=== PATIENT | male | born 1970 | race Caucasian/White ===

== ENCOUNTER 2018-01-25 02:44 | Emergency (ER) | payer SELFPAY ==
[~2018-01-25] VITALS: Ht 177.8 cm; Wt 72.5 kg
[~2018-01-25 02:44] MED LIST: BACT800T5 PO; CEPH-460 PO; DILA2TAB4 PO
[2018-01-25 02:51] VITALS: BP 164/75; PULSE 85; RESP 16; TEMP 97.8; O2SAT 100
[2018-01-25] MEDS ORDERED: KETOROLAC TROMETHAMINE 60 MG/2 ML (IM) VIAL IM ONE (03:15)
[2018-01-25] MEDS ORDERED: ORPHENADRINE INJ 60 MG/2 ML AMP IM ONE (03:15)
[2018-01-25] MEDS ORDERED: DEXAMETHASONE SOD PHOS 20 MG/5 ML VIAL IM ONE (03:15)
[2018-01-25] MEDS ORDERED: PRED20 PO (03:27)
[2018-01-25] MEDS ORDERED: IBUP1TAB7 PO (03:27)
[2018-01-25] MEDS ORDERED: CYCL10TA PO (03:27)
--- NOTE | 2018-01-25 03:27 | PD ---
HPI Chief Complaint: Pain: Acute or Chronic Time Seen by Provider: 03:03 Travel History International Travel<30 days: No Contact w/Intl Traveler<30days: No Traveled to known affect area: No History of Present Illness HPI Patient is a 47-year-old male presenting to the emergency department with his mother for evaluation of neck pain. Patient states it started 2 days ago when he woke up. He reports it is getting progressively worse. He took ibuprofen yesterday one time with no relief. He denies any fever, chills, headache. He states the pain is a 10 out of 10, he reports that he cannot turn his neck. Symptom onset was gradual, symptom severity is moderate. There are no alleviating factors. PFSH Past Medical History Medical History: Denies Significant Hx Medical other: Yes (FELL 7 FEET - BROKEN BONES, NO SURGERIES) Influenza Vaccination: No Past Surgical History Surgical History: No Previous Surgery Social History Alcohol Use: No Tobacco Use: Yes (1 PCK/DAY) Substance Use: No Allergies-Medications (Allergen,Severity, Reaction): Coded Allergies: No Known Allergies (Verified , 01/25/18) Reported Meds & Prescriptions Reported Meds & Active Scripts Active No Active Prescriptions or Reported Medications Review of Systems Except as stated in HPI: all other systems reviewed are Neg Musculoskeletal: Positive: Myalgias, Cramping Physical Exam Narrative GENERAL: Well-developed, well-nourished, alert male. Presenting in no acute distress. Appears uncomfortable. SKIN: Warm and dry. HEAD: Atraumatic. Normocephalic. EYES: Pupils equal and round. No scleral icterus. No injection or drainage. ENT: No nasal bleeding or discharge. Mucous membranes pink and moist. NECK: Trachea midline. No JVD. Tenderness to palpation paraspinal musculature and cervical region bilaterally. Decreased range of motion with rotation to the right. CARDIOVASCULAR: Regular rate and rhythm. RESPIRATORY: No accessory muscle use. Clear to auscultation. Breath sounds equal bilaterally. GASTROINTESTINAL: Abdomen soft, non-tender, nondistended. Hepatic and splenic margins not palpable. MUSCULOSKELETAL: Extremities without clubbing, cyanosis, or edema. No obvious deformities. NEUROLOGICAL: Awake and alert. No obvious cranial nerve deficits. Motor grossly within normal limits. Five out of 5 muscle strength in the arms and legs. Normal speech. PSYCHIATRIC: Appropriate mood and affect; insight and judgment normal. Data Data Last Documented VS Vital Signs Date Time Temp Pulse Resp B/P (MAP) Pulse Ox O2 Delivery O2 Flow Rate FiO2 01/25/18 02:51 97.8 85 16 164/75 (104) 100 Orders Orders Ketorolac Inj (Toradol Inj) (01/25/18 03:15) Orphenadrine Inj (Norflex Inj) (01/25/18 03:15) Dexamethasone Inj (Decadron Inj) (01/25/18 03:15) [facility] Medical Decision Making Medical Screen Exam Complete: Yes Emergency Medical Condition: Yes Interpretation(s) Vital Signs Date Time Temp Pulse Resp B/P (MAP) Pulse Ox O2 Delivery O2 Flow Rate FiO2 01/25/18 02:51 97.8 85 16 164/75 (104) 100 Differential Diagnosis Strain versus spasm versus torticollis versus other Narrative Course Patient presented for evaluation of neck pain for the last 2 days. He has only taken ibuprofen once. There was no preceding injury or trauma. No focal deficits on exam, no meningeal signs. Patient be given Toradol, Norflex and dexamethasone the emergency department. He was encouraged to apply warm heat to the affected area, continue gentle range of motion exercises, avoid exacerbating activities, avoid bed rest. He was encouraged to follow-up with his primary doctor or return to emergency department for any new or worsening symptoms. Patient verbalized understanding of these instructions. Patient stable for discharge Diagnosis Primary Impression: Cervical paraspinal muscle spasm Referrals: Primary Care Physician Patient Instructions: General Instructions, Muscle Spasm (ED), Muscle Strain ( ED) Additional Instructions: Follow-up with your primary doctor Apply warm heat to the affected area, continue gentle range of motion exercises , take medications as directed, avoid bed rest, avoid exacerbating activities Return to emergency department for any new or worsening symptoms Med/Other Pt SpecificInfo: Prescription(s) given Scripts Prednisone (Prednisone) 20 Mg Tab 40 MG PO DAILY for 3 Days, #6 TAB 0 Refills Take 40 mg (2 tablets) daily for 5 days Prov: Delores Hensley 01/25/18 Cyclobenzaprine (Flexeril) 10 Mg Tab 10 MG PO TID Y for MUSCLE SPASM, #30 TAB 0 Refills Prov: Delores Hensley 01/25/18 Ibuprofen (Ibuprofen) 800 Mg Tab 800 MG PO Q6HR Y for PAIN, #40 TAB 0 Refills Prov: Delores Hensley 01/25/18 Disposition: 01 DISCHARGE HOME Condition: Stable Delores Hensley Jan 25, 2018 03:27
== END 2018-01-25 03:58 | disposition home or self-care (01) ==
LOC: NEPD 02:44
DX: M62.830 Muscle spasm of back (principal); F17.200 Nicotine dependence, unspecified, uncomplicated
CPT/HCPCS: 96372; 99283; J1100; J1885; J2360